=== PATIENT | male | born 1955 | race African-American/Black ===

== ENCOUNTER 2019-09-21 06:18 | Inpatient (IN) | payer MEDICARE ==
[~2019-09-21] VITALS: Ht 180.3 cm; Wt 77.1 kg
[2019-09-21] VITALS (16 sets, daily range): BP systolic 151–195; BP diastolic 86–113
[2019-09-21 06:52] LABS: BASOPHILS % 0.6 % (0.0-2.0); EOSINOPHILS % 3.2 % (0.0-5.0); HEMATOCRIT. 21.9 % (42.0-52.0); HEMOGLOBIN. 7.7 g/dL (14.0-18.0); LYMPHOCYTES % 9.3 % (20.0-50.0); MEAN CORPUSCULAR VOLUME 87.9 fL (80.0-94.0); MEAN PLATELET VOLUME 7.4 fl (7.4-10.4); NEUTROPHILS % 78.9 % (40.0-76.0); PLATELET 204 x1000/uL (130-400); RED BLOOD CELL COUNT 2.49 mill/uL (4.7-6.1); RED CELL DISTRIBUTION WIDTH 14.3 % (11.6-14.6)
[2019-09-21 06:56] LABS: CHLORIDE 103 mEq/L (98-107)
[2019-09-21] MEDS ORDERED: NITROGLYCERIN 50MG PREMIX 250 ML IV ONE (07:30)
[2019-09-21] MEDS ORDERED: GUAIFENESIN 200MG/10ML SUGAR FREE UDC PO PRN (08:00)
[2019-09-21] MEDS ORDERED: ONDANSETRON HCL 4MG/2ML INJ IV PRN (08:00)
[2019-09-21] MEDS ORDERED: IPRATROPIUM/ALBUTEROL 0.5-3(2.5)MG/3ML NEB NEB PRN (08:00)
[2019-09-21] MEDS ORDERED: TRAMADOL 50MG TABLET PO PRN (08:00)
[2019-09-21] MEDS ORDERED: DIPHENHYDRAMINE 50MG/ML VIAL IV PRN (08:00)
[2019-09-21] MEDS ORDERED: NITROGLYCERIN 0.4MG TABLET SL SL PRN (08:00)
[2019-09-21] MEDS ORDERED: MAGNESIUM/ALUMINUM HYDROXIDE/SIMETHICONE 30ML UDC PO PRN (08:00)
[2019-09-21] MEDS ORDERED: ACETAMINOPHEN 325MG TABLET PO PRN ×2 (08:00)
[2019-09-21] MEDS ORDERED: ZOLPIDEM TARTRATE 5MG TABLET PO PRN ×2 (08:00)
[2019-09-21] MEDS ORDERED: FAMOTIDINE 20MG TABLET PO SCH (09:00)
[2019-09-21] MEDS ORDERED: ASPIRIN 325MG EC TABLET PO SCH (10:00)
[2019-09-21] MEDS: ENOXAPARIN 40MG/0.4ML SYR SUBCUT SCH (10:00)
[2019-09-21] MEDS: SEVELAMER CARBONATE 800 MG TABLET PO SCH ×2 (10:07→18:34)
[2019-09-21] MEDS: AMLODIPINE 10MG TABLET PO SCH (10:08)
[2019-09-21] MEDS ORDERED: HYDRALAZINE HCL 50MG TABLET PO SCH (14:00)
[2019-09-21 14:53] LABS: CREATINE KINASE MB FRACTION 1.3 ng/mL (0.5-3.6)
[2019-09-21] MEDS ORDERED: CLONIDINE HCL 0.3MG/24HR PATCH TD SCH (15:00)
[2019-09-21] MEDS ORDERED: PNEUMOCOCCAL 23-VAL P-SAC VAC 0.5 ML IM ONE (16:00)
[2019-09-21] MEDS ORDERED: INFLUENZA VIRUS VACCINE(AFLURIA) 0.5ML SYR IM ONE (16:00)
[2019-09-21] MEDS: CLONIDINE 0.1MG TABLET PO PRN (16:21)
[2019-09-21] MEDS ORDERED: FOLI1TAB63 PO (20:14)
[2019-09-21] MEDS ORDERED: MULT-1116 PO (20:14)
[2019-09-21] MEDS ORDERED: CINA30 PO (20:14)
[2019-09-21] MEDS ORDERED: CLON1PAT10 TD (20:14)
[2019-09-21] MEDS ORDERED: AMLO10TA80 PO (20:14)
[2019-09-21] MEDS ORDERED: HJ10 IJ (20:14)
[2019-09-21] MEDS ORDERED: SAW450CA7 PO (20:14)
[2019-09-21] MEDS ORDERED: CALC-988 PO (20:14)
[2019-09-21] MEDS ORDERED: ASPI-1158 PO (20:14)
[2019-09-21] MEDS ORDERED: CARV25TA47 PO (20:14)
[2019-09-21] MEDS ORDERED: FERR324T4 PO (20:14)
[2019-09-21] MEDS ORDERED: CHOL40002 MT (20:14)
[2019-09-21] MEDS: EPOETIN ALFA 10000UNITS/ML VIAL SUBCUT SCH (21:00)
[2019-09-21] MEDS ORDERED: CARVEDILOL 12.5MG TABLET PO SCH (21:00)
[2019-09-22] VITALS (24 sets, daily range): BP systolic 148–182; BP diastolic 77–106
[2019-09-22] LABS: CREATINE KINASE 139 IU/L (39-308)
[2019-09-22 00:01] LABS: CREATINE KINASE MB FRACTION < 1.0 ng/mL (0.5-3.6)
[2019-09-22] MEDS: CLONIDINE 0.1MG TABLET PO PRN ×2 (00:23→15:22)
[2019-09-22 06:04] LABS: BASOPHILS % 0.5 % (0.0-2.0); EOSINOPHILS % 2.6 % (0.0-5.0); HEMATOCRIT. 21.7 % (42.0-52.0); HEMOGLOBIN. 7.6 g/dL (14.0-18.0); MEAN CORPUSCULAR HEMOGLOBIN 30.8 pg (28.0-32.0); MEAN CORPUSCULAR VOLUME 88.4 fL (80.0-94.0); NEUTROPHILS % 73.9 % (40.0-76.0); PLATELET 187 x1000/uL (130-400); RED BLOOD CELL COUNT 2.46 mill/uL (4.7-6.1); RED CELL DISTRIBUTION WIDTH 14.4 % (11.6-14.6)
[2019-09-22] MEDS: ENOXAPARIN 40MG/0.4ML SYR SUBCUT SCH (09:00)
[2019-09-22] MEDS: AMLODIPINE 10MG TABLET PO SCH (15:22)
[2019-09-22] MEDS: ASPIRIN 81MG EC TABLET PO SCH (15:22)
[2019-09-22] MEDS: FOLIC ACID/VITAMIN B COMP W-C TABLET PO SCH (15:23)
[2019-09-22] MEDS: CHOLECALCIFEROL (D3) 1000 UNIT TABLET PO SCH (18:02)
[2019-09-22] MEDS: FERROUS SULFATE 325MG TABLET PO SCH (18:02)
[2019-09-22] MEDS: CARVEDILOL 12.5MG TABLET PO SCH (20:33)
[2019-09-23] VITALS (19 sets, daily range): BP systolic 130–170; BP diastolic 76–101
[2019-09-23 05:49] LABS: BASOPHILS % 0.4 % (0.0-2.0); EOSINOPHILS % 1.9 % (0.0-5.0); HEMATOCRIT. 22.6 % (42.0-52.0); MEAN CORPUSCULAR HEMOGLOBIN 30.7 pg (28.0-32.0); MEAN CORPUSCULAR VOLUME 86.9 fL (80.0-94.0); MONOCYTES % 13.8 % (2.0-8.0); NEUTROPHILS % 69.9 % (40.0-76.0); PLATELET 194 x1000/uL (130-400); RED BLOOD CELL COUNT 2.59 mill/uL (4.7-6.1); RED CELL DISTRIBUTION WIDTH 13.7 % (11.6-14.6)
[2019-09-23 06:04] LABS: PHOSPHORUS 4.4 mg/dL (2.5-4.9)
[2019-09-23] MEDS: FOLIC ACID/VITAMIN B COMP W-C TABLET PO SCH (08:26)
[2019-09-23] MEDS: FERROUS SULFATE 325MG TABLET PO SCH ×2 (08:26→18:05)
[2019-09-23] MEDS: ENOXAPARIN 40MG/0.4ML SYR SUBCUT SCH (08:26)
[2019-09-23] MEDS: ASPIRIN 81MG EC TABLET PO SCH (08:26)
[2019-09-23] MEDS: CHOLECALCIFEROL (D3) 1000 UNIT TABLET PO SCH (08:26)
[2019-09-23] MEDS: AMLODIPINE 10MG TABLET PO SCH (08:27)
[2019-09-23] MEDS: CARVEDILOL 12.5MG TABLET PO SCH ×2 (08:27→21:31)
[2019-09-23] MEDS: CLONIDINE 0.1MG TABLET PO PRN (18:42)
[2019-09-23] MEDS: EPOETIN ALFA 10000UNITS/ML VIAL SUBCUT SCH (21:00)
[2019-09-24] VITALS: BP 133/63
[2019-09-24 04:00] VITALS: BP 130/62
[2019-09-24 05:59] LABS: BASOPHILS % 0.4 % (0.0-2.0); EOSINOPHILS % 4.1 % (0.0-5.0); HEMOGLOBIN. 7.4 g/dL (14.0-18.0); LYMPHOCYTES % 12.3 % (20.0-50.0); MEAN CORPUSCULAR HEMOGLOBIN 30.9 pg (28.0-32.0); MEAN CORPUSCULAR VOLUME 86.1 fL (80.0-94.0); MEAN PLATELET VOLUME 8.2 fl (7.4-10.4); MONOCYTES % 14.3 % (2.0-8.0); NEUTROPHILS % 68.9 % (40.0-76.0); PLATELET 181 x1000/uL (130-400); RED CELL DISTRIBUTION WIDTH 14.1 % (11.6-14.6)
[2019-09-24 06:55] LABS: PHOSPHORUS 5.4 mg/dL (2.5-4.9)
[2019-09-24 07:46] LABS: HEMATOCRIT. 20.7 % (42.0-52.0)
[2019-09-24 08:00] VITALS: BP 133/72
[2019-09-24] MEDS: FERROUS SULFATE 325MG TABLET PO SCH (08:26)
[2019-09-24] MEDS: ASPIRIN 81MG EC TABLET PO SCH (08:26)
[2019-09-24] MEDS: FOLIC ACID/VITAMIN B COMP W-C TABLET PO SCH (08:26)
[2019-09-24] MEDS: CARVEDILOL 12.5MG TABLET PO SCH (08:27)
[2019-09-24] MEDS: AMLODIPINE 10MG TABLET PO SCH (08:27)
[2019-09-24] MEDS: CHOLECALCIFEROL (D3) 1000 UNIT TABLET PO SCH (08:32)
[2019-09-24] MEDS ORDERED: ENOXAPARIN 30MG/0.3ML SYR SUBCUT SCH (09:00)
[2019-09-24 12:00] VITALS: BP 130/79
[2019-09-24 13:06] VITALS: BP 130/79
[2019-09-26 04:07] LABS: BARBITURATE SCREEN Negative ug/mL (Cutoff:0.1); BENZODIAZEPINE SCREEN Negative ng/mL (Cutoff:20); OPIATES SCREEN Negative ng/mL (Cutoff:5); PHENCYCLIDINE SCREEN Negative ng/mL (Cutoff:8)
== END 2019-09-24 13:40 | disposition home or self-care (01) | DRG 189 ==
LOC: ER 06:18 → CVICU 07:26 → EDBEDREQSVC 08:31 → EDBEDREQ 08:31 → EDBEDREQTM 08:31 → ENRESERV 08:48 → 6WST 09-23 17:24
PROVIDERS: ADMIT Internal Medicine; ATTEND Internal Medicine
PROC: 5A09357 Assistance with Respiratory Ventilation, Less than 24 Consecutive Hours, Continuous Positive Airway Pressure (ICD-10-PCS; principal; 2019-09-21)
PROC: 5A1D70Z Performance of Urinary Filtration, Intermittent, Less than 6 Hours Per Day (ICD-10-PCS; 2019-09-22)
PROC: 5A1D70Z Performance of Urinary Filtration, Intermittent, Less than 6 Hours Per Day (ICD-10-PCS; 2019-09-22)
PROC: 5A1D70Z Performance of Urinary Filtration, Intermittent, Less than 6 Hours Per Day (ICD-10-PCS; 2019-09-23)
DX: J96.01 Acute respiratory failure with hypoxia (principal); N18.6 End stage renal disease; I13.2 Hypertensive heart and chronic kidney disease with heart failure and with stage 5 chronic kidney disease, or end stage renal disease; I16.1 Hypertensive emergency; N25.81 Secondary hyperparathyroidism of renal origin; D63.8 Anemia in other chronic diseases classified elsewhere; D72.829 Elevated white blood cell count, unspecified; E78.5 Hyperlipidemia, unspecified; E83.51 Hypocalcemia; I50.9 Heart failure, unspecified; M10.9 Gout, unspecified; R74.0 Nonspecific elevation of levels of transaminase and lactic acid dehydrogenase [LDH]; K21.9 Gastro-esophageal reflux disease without esophagitis; M41.9 Scoliosis, unspecified; Z79.82 Long term (current) use of aspirin; Z80.9 Family history of malignant neoplasm, unspecified; Z82.3 Family history of stroke; Z82.49 Family history of ischemic heart disease and other diseases of the circulatory system; Z83.3 Family history of diabetes mellitus; Z91.011 Allergy to milk products; Z91.19 Patient's noncompliance with other medical treatment and regimen; Z91.15 Patient's noncompliance with renal dialysis; Z99.2 Dependence on renal dialysis; Z79.899 Other long term (current) drug therapy
CPT/HCPCS: 36415; 71045; 80048; 80053; 80061; 80307; 82270; 82550; 82553; 83036; 83735; 83880; 84100; 84484; 85025; 90686; 90732; 93005; 93306; 93970; 94660; 97161; 99291; J0885; J1650